=== PATIENT | female | born 1955 | race Caucasian/White ===

== ENCOUNTER 2021-09-04 09:44 | Emergency (ER) | payer MEDICAID ==
[~2021-09-04] VITALS: Ht 157.5 cm; Wt 82.1 kg
[2021-09-04 09:46] VITALS: BP 133/65
--- NOTE | 2021-09-04 10:05 | NUR ---
PT AMBULATED TO BED 11
--- NOTE | 2021-09-04 10:08 | NUR ---
DR. WIGGINS BEDSIDE EVALUATING PT
--- NOTE | 2021-09-04 10:15 | NUR ---
65 Y FEMALE WITH C/O ROOM IS LIGHTHEADEDNESS, DIZZINESS, GEN WEAK, AND NIXON X2 DAYS. PT STATED NIXON IS "PRESSURE LIKE AND FELT 5/10". BREATH SOUNDS CLEAR BILATEARLLY, S1/S2 HEARD, AND MOLD FILLER AND DRAINER STRENGTH EQUAL BILATERALLY. BP 133/65, BLOOD SUGAR 120 AT THIS TIME. PMH: DM, HTN, HERNIA REPAIR NKA
[2021-09-04] MEDS ORDERED: NACL 0.9% 1,000 ML IV ONE (10:20)
--- NOTE | 2021-09-04 10:25 | NUR ---
20 G IV ESTABLISHED IN R AC. BLOOD WORK COLLECTED FROM IV AND HANDED TO TIME CLOCK REPAIRER KRISTI. URINE ALSO HANDED TO TIME CLOCK REPAIRER KRISTI
--- NOTE | 2021-09-04 10:28 | NUR ---
XRAY BEDSIDE WITH PT
[2021-09-04 11:00] LABS: BASOPHILS # (AUTO) 0.1 K/uL (0.00-0.22); BASOPHILS % (AUTO) 1.9 % (0.0-2.0); EOSINOPHILS # (AUTO) 0.2 K/uL (0-0.4); EOSINOPHILS % (AUTO) 3.5 % (0.0-4.0); HEMOGLOBIN 12.9 g/dL (12.0-16.0); LYMPHOCYTES # (AUTO) 1.3 K/uL (2.5-16.5); LYMPHOCYTES % (AUTO) 27.9 % (20.5-51.1); MEAN CORPUSCULAR HEMOGLOBIN 30 pg (27-31); MEAN CORPUSCULAR HGB CONC 34 g/dL (33-37); MEAN CORPUSCULAR VOLUME 89.5 fL (80-94); MONOCYTES # (AUTO) 0.2 K/uL (0.8-1.0); NEUTROPHILS % (AUTO) 62.7 % (42.2-75.2); PLATELET COUNT (AUTO) 204 K/uL (140-450); RED BLOOD CELL COUNT(AUTO) 4.25 MIL/uL (4.20-5.40); RED CELL DISTRIBUTION WIDTH 12.9 % (11.6-13.7); WHITE BLOOD COUNT (AUTO) 4.7 K/uL (4.8-10.8)
[2021-09-04 11:14] LABS: APPEARANCE,URINE CLEAR (CLEAR); BILIRUBIN,URINE NEGATIVE (NEGATIVE); BLOOD, URINE NEGATIVE (NEGATIVE); COLOR,URINE YELLOW (YELLOW); LEUKOCYTE ESTERASE ,URINE NEGATIVE (NEGATIVE); NITRITE, URINE NEGATIVE (NEGATIVE); UGLUCOSE NEGATIVE (NEGATIVE)
[2021-09-04 11:25] LABS: ALBUMIN 3.7 g/dL (3.4-5.0); THYROID STIMULATING HORMONE 2.29 uIU/mL (0.34-3.74); TOTAL BILIRUBIN 0.5 mg/dL (0.0-1.0)
[2021-09-04 11:26] LABS: ANION GAP 14.4 (8-16); CARBON DIOXIDE 24.9 mmol/L (21-32); CREATININE 0.6 mg/dL (0.6-1.3); POTASSIUM 4.3 mmol/L (3.5-5.1)
--- NOTE | 2021-09-04 12:05 | NUR ---
Patient appears to be resting comfortably in bed with eyes closed and lights off. Vital Signs within normal limits and charted. Respirations even and unlabored. Pt stated she is starting to feel better and less dizzy. Will continue to monitor pt status
[2021-09-04 12:36] VITALS: BP 135/60
--- NOTE | 2021-09-04 12:37 | NUR ---
Patient discharged with v/s stable. Written and verbal after care instructions given and explained. Patient verbalized understanding. Ambulatory with steady gait. All questions addressed prior to discharge. Advised to follow up with PMD.
== END 2021-09-04 12:37 | disposition home or self-care (01) ==
LOC: MED 09:44
DX: R53.1 Weakness (principal); E11.9 Type 2 diabetes mellitus without complications; I10 Essential (primary) hypertension
CPT/HCPCS: 36415; 71045; 80053; 81003; 84443; 84484; 85025; 93005; 96360; 99285; J7030